=== PATIENT | female | born 1945 | race Caucasian/White ===

== ENCOUNTER 2021-11-17 12:53 | Outpatient (CLI) | payer BC | END 2021-11-17 12:54 | disposition home or self-care (01) | LOC: CSHMAMMO 12:53 | PROVIDERS: ATTEND Nurse Practitioner Family | DX: Z12.31 Encounter for screening mammogram for malignant neoplasm of breast (principal) | CPT/HCPCS: 77063; 77067 ==

== ENCOUNTER 2023-01-31 10:55 | Outpatient (CLI) | payer BC | END 2023-01-31 10:56 | disposition home or self-care (01) | LOC: CSHMAMMO 10:55 | PROVIDERS: ATTEND Family Medicine Sports Medicine | DX: Z13.820 Encounter for screening for osteoporosis (principal); M85.851 Other specified disorders of bone density and structure, right thigh; M85.852 Other specified disorders of bone density and structure, left thigh | CPT/HCPCS: 77080 ==

== ENCOUNTER 2023-09-13 07:07 | Observation (INO) | payer BC ==
[2023-09-13 07:36] LABS: #Basophils 0.05 10x3/uL (0.0-0.2); #Eosinphils 0.22 10x3/uL (0.0-0.5); #Monocytes 0.78 10x3/uL (0.0-1.1); #Neutrophils 4.74 10x3/uL (1.5-8.4); %Basophils 0.7 % (0.0-2.0); %Lymphocytes 20.6 % (18.0-47.0); %Monocytes 10.7 % (0.0-10.0); %Neutrophils 64.7 % (40.0-75.0); Hematocrit 44.9 % (34.9-44.5); Hemoglobin 15.1 g/dL (12.0-15.5); Mean Corpuscular HGB CONC 33.6 g/dL (32.0-36.0); Mean Corpuscular Hemoglobin 29.2 pg (27.0-33.0); Mean Corpuscular Volume 86.8 fl (81.6-98.3); Mean Platelet Volume 10.1 fl (7.4-10.4); Platelet Count 254 10x3/uL (150-450); RBC Distribution Width 13.5 % (11.5-14.5); Red Blood Cell (RBC) Count 5.17 10x6/uL (3.90-5.03); White Blood Cell (WBC) Count 7.3 10x3/uL (3.5-10.5)
[2023-09-13 07:52] LABS: PTT 28.3 sec (22.0-33.0); Prothrombin Time 10.4 sec (9.5-12.1)
[2023-09-13 07:58] LABS: ALT (SGPT) 22 U/L (8-55); AST (SGOT) 19 U/L (5-34); Albumin 3.9 g/dL (3.4-4.8); Alkaline Phosphatase 85 U/L (40-110); Anion Gap 13 mmol/L (10-20); BUN (Urea Nitrogen) 26 mg/dL (9.8-20.1); Bilirubin, Total 0.5 mg/dL (0.2-1.2); Calc. Creatinine Clearance 0 mL/min (70-130); Calcium 9.9 mg/dL (7.8-10.44); Carbon Dioxide 28 mmol/L (23-31); Chloride 106 mmol/L (98-107); Estimated GFR 57; Globulin 2.8 g/dL (2.4-3.5); Glucose 81 mg/dL (83-110); Potassium 3.9 mmol/L (3.5-5.1); Protein, Total 6.7 g/dL (5.8-8.1); Sodium 143 mmol/L (136-145)
[2023-09-13 08:00] LABS: Troponin I 0.019 ng/mL (< 0.028)
[2023-09-13 08:23] LABS: Bilirubin Neg (Negative); Blood, Urine 25 (Negative); Clarity Clear (Clear); Glucose, Urine (Dipstick) Normal (Negative); Ketone, Urine Negative (Negative); Leukocyte Negative (Negative); Nitrite Negative (Negative); Protein, Urine (Dipstick) Negative (Neg-Trace); Specific Gravity, Urine 1.005 (1.005-1.030); Urobilinogen Normal mg/dL (Less than 2)
[2023-09-13 08:38] LABS: Bacteria/HPF 1+ HPF (None Seen); CAUTI Indications for Culture Alt mental st,lethar; Squamous Epithelial 0-3 HPF (0-3); WBC/HPF 0-3 HPF (0-3)
[2023-09-13 08:39] LABS: Urine Culture Reflex No No
[2023-09-13] MEDS ORDERED: Aspirin 325 MG TAB ONE (09:19)
[2023-09-13] MEDS ORDERED: Iopamidol 370 76% 100 ML VIAL ONE (09:37)
[2023-09-13 14:07] VITALS: BMI 24.7
[2023-09-13] MEDS: Clopidogrel Bisulfate 75 MG TAB PO SCH (14:33)
[2023-09-13] MEDS: Valsartan 80 MG TAB PO SCH (15:13)
[2023-09-13] MEDS: Levothyroxine Sodium 100 MCG TAB PO SCH (15:13)
[2023-09-13 16:58] LABS: Hemoglobin A1c 5.6 % (4.0-6.0)
[2023-09-13] MEDS: Atorvastatin Calcium 40 MG TAB PO SCH (21:10)
[2023-09-14 04:09] LABS: Cardiac Risk 4.3 (Less than 4.5)
[2023-09-14] MEDS: Levothyroxine Sodium 100 MCG TAB PO SCH (07:18)
[2023-09-14 07:42] VITALS: TEMP 97.9
[2023-09-14] MEDS: Hydrochlorothiazide 25 MG TAB PO SCH (09:11)
[2023-09-14] MEDS: Clopidogrel Bisulfate 75 MG TAB PO SCH (09:11)
[2023-09-14] MEDS: Aspirin 81 mg Enteric Coated Tablet PO SCH (09:11)
[2023-09-14] MEDS: Enoxaparin 40 MG (0.4 mL) SYRINGE SC SCH (09:11)
[2023-09-14] MEDS: Valsartan 80 MG TAB PO SCH (09:12)
[2023-09-14] MEDS: hydrALAZINE 20 MG/ML VIAL SLOW IVP PRN (10:12)
[2023-09-14 13:30] VITALS: BP 211/98
== END 2023-09-14 13:00 | disposition home or self-care (01) ==
LOC: CSHERS 07:07 → CSHTELE 12:20
PROVIDERS: ADMIT Internal Medicine; ATTEND Physician Assistant
DX: G45.9 Transient cerebral ischemic attack, unspecified (principal); I25.10 Atherosclerotic heart disease of native coronary artery without angina pectoris; E03.9 Hypothyroidism, unspecified; G81.94 Hemiplegia, unspecified affecting left nondominant side; J20.9 Acute bronchitis, unspecified; Z88.0 Allergy status to penicillin; Z79.82 Long term (current) use of aspirin; Z79.02 Long term (current) use of antithrombotics/antiplatelets; Z79.890 Hormone replacement therapy; Z79.899 Other long term (current) drug therapy; Z90.710 Acquired absence of both cervix and uterus; Z98.890 Other specified postprocedural states; Z87.891 Personal history of nicotine dependence
CPT/HCPCS: 0042T; 36415; 36416; 70450; 70551; 71045; 80053; 80061; 81001; 82550; 83036; 84484; 85025; 85610; 85730; 93005; 93306; 93880; 96372; 96374; G0378; J0360; J1650; Q9967